=== PATIENT | male | born 1950 | race Caucasian/White ===

== ENCOUNTER → 2020-07-26 | Outpatient (CLI) | payer MEDICARE | END | disposition home or self-care (01) | LOC: SHCH 10:34 | PROVIDERS: ATTEND Internal Medicine Cardiovascular Disease | DX: I08.1 Rheumatic disorders of both mitral and tricuspid valves (principal); R00.0 Tachycardia, unspecified | CPT/HCPCS: 93306; 93356 ==

== ENCOUNTER 2020-12-27 08:24 | Day surgery (SDC) | payer MEDICARE ==
[2020-12-23 14:00] LABS: BASOPHILS % (AUTO) 0.5 % (0.0-5.0); EOSINOPHILS % (AUTO) 0.9 % (0.0-8.0); HEMATOCRIT 46.8 % (42-54); LYMPHOCYTES % (AUTO) 38.6 % (21.0-51.0); MEAN CORPUSCULAR HEMOGLOBIN 31.7 pg (27.0-33.0); MEAN CORPUSCULAR HGB CONC 33.8 g/dL (32.0-36.0); MONOCYTES % (AUTO) 10.4 % (3.0-13.0); NEUTROPHILS % (AUTO) 49.1 % (40.0-77.0); PLATELET COUNT (AUTO) 214 K/uL (130-400); RED BLOOD CELL COUNT(AUTO) 4.98 MIL/uL (4.50-6.20); WHITE BLOOD COUNT (AUTO) 6.4 K/uL (4.8-10.8)
[2020-12-23 14:07] LABS: CREATININE 1.2 mg/dL (0.5-1.5); POTASSIUM 5.3 mmol/L (3.5-5.1)
[2020-12-23 14:16] LABS: INR 1.19 (0.85-1.15); PROTHROMBIN TIME 12.8 SEC (9.6-11.6)
[2020-12-23 14:17] LABS: PARTIAL THROMBOPLASTIN TIME 34.5 SEC (26.3-35.5)
[2020-12-26 09:57] VITALS: BP 113/76
[2020-12-27] VITALS (9 sets, daily range): BP systolic 106–127; BP diastolic 75–96
[~2020-12-27] VITALS: Ht 167.6 cm; Wt 86.4 kg
[~2020-12-27 08:24] MED LIST: 0.9%NACL 1000ML 1,000 ML IV SCH; RIVA20TA PO; TADA10TA PO
[2020-12-27] MEDS ORDERED: TADA10TA PO (10:05)
[2020-12-27] MEDS ORDERED: MEPERIDINE-PF 25 MG/ML SYG ONE ×4 (11:16→14:15)
[2020-12-27] MEDS ORDERED: HEPARIN 10,000 UNIT/10ML (1,000 UNIT/ML) VIAL ONE (11:16)
[2020-12-27] MEDS ORDERED: MIDAZOLAM HCL 1 MG/ML 2ML VIAL ONE ×3 (11:16→14:15)
[2020-12-27] MEDS ORDERED: LIDOCAINE HCL 400MG/20ML VIAL ONE (11:17)
[2020-12-27] MEDS ORDERED: PROP225C11 PO (14:58)
[2020-12-27] MEDS ORDERED: PROPAFENONE HCL 150 MG TABLET PO SCH (16:15)
== END 2020-12-27 18:35 | disposition home or self-care (01) ==
LOC: DAH 08:24
PROVIDERS: ATTEND Internal Medicine Cardiovascular Disease
DX: I48.3 Typical atrial flutter (principal); Z79.01 Long term (current) use of anticoagulants; Z79.899 Other long term (current) drug therapy; Z72.89 Other problems related to lifestyle; Z82.49 Family history of ischemic heart disease and other diseases of the circulatory system; Z88.0 Allergy status to penicillin
CPT/HCPCS: 36415 ×2; 80048; 82948; 84132; 85025; 85610; 85730; 93005 ×2; 93613; 93621; 93653; 93655; A4215; A4216; A4221; A4222; A4223 ×3; A4606; A4649 ×2; A4663; C1730; C1732; C1894 ×2; J1644 ×2; J2175 ×4; J2250 ×3; J3490; J7030; 99156; 99157